=== PATIENT | female | born 1970 | race Caucasian/White ===

== ENCOUNTER 2017-12-19 14:13 | Emergency (ER) | payer OTHER, SELFPAY ==
[2017-12-19 14:19] VITALS: BP 108/54; PULSE 95; PULSE 96; RESP 18; TEMP 36.7; O2SAT 100; BMI 35.3
--- NOTE | 2017-12-19 14:23 | DI.RAD.S_ITS ---
PROCEDURE: XR CHEST 1V INDICATIONS: chest pain TECHNIQUE: One view of the chest was acquired. COMPARISON: [facility], , CHEST 1 VIEW, 11/14/2017, 11:28. FINDINGS: Surgical changes and devices: None. Lungs and pleura: No pleural effusions or pneumothorax. Lungs are clear. Mediastinum: Mediastinal contours appear normal. Heart size is normal. Bones and chest wall: No suspicious bony lesions. Overlying soft tissues appear unremarkable. IMPRESSION: Reduced inspiratory volume, no acute disease. Dictated by: Carlos Bustamante M.D. on 12/19/2017 at 15:16 Approved by: Carols Bustamante M.D. on 12/19/2017 at 15:16
[2017-12-19 14:44] LABS: Add Manual Diff / Slide Review NO; Basophils Percent Auto 0.8 % (0-2); Eosinophils Percent Auto 1.1 % (2-4); Hematocrit 38.6 % (36-46); Hemoglobin 13.7 g/dL (12.0-16.0); Lymphocytes Percent Auto 16.3 % (25-40); Mean Corpuscular HGB Conc 35.4 % (30-36); Mean Corpuscular Hemoglobin 33.2 PG (26-34); Mean Corpuscular Volume 93.9 fL (80-100); Monocytes Percent Auto 5.9 % (3-14); Neutrophils Absolute Auto 5000 /uL (3000-5900); Neutrophils Percent Auto 75.9 % (50-75); Platelet Count 243 X10^3/uL (150-400); Red Blood Cell Count 4.11 X10^6/uL (4.0-5.2); Red Cell Distribution Width 13.6 % (11.6-14.8); White Blood Cell Count 6.6 X10^3/uL (4.5-11.0)
--- NOTE | 2017-12-19 14:46 | ED.CHESTPAIN ---
HPI - Chest Pain General Chief Complaint: Chest Pain Stated Complaint: General Weakness Time Seen by Provider: 12/19/17 14:40 Source: patient and EMS Mode of arrival: EMS Limitations: no limitations History of Present Illness HPI narrative: Patient presents to the emergency department today with a chief complaint of episodes of chest pain since 10 or 11 this morning. She denies provocation, palliation or radiation. She has extensive history of chest pain for the past 6 years and has had multiple evaluations in the interim. Additionally she has a longstanding history of vasovagal syncope and at up episode this afternoon associated with a sensation of nausea and loose stools. She did not vomit she did not lose control of her bowels. When EMS arrived on her blood pressure to be in 70s and she was diaphoretic, consistent with her prior history vagal responses. By her arrival she was nearly asymptomatic. Additionally she complains of fullness in her neck and control of her tongue has been problematic for some time, she states that she has discussed a swelling of thyroid gland with her primary care doctor whom told her the thyroid may be pressing on her carotids which would have caused her symptoms today. MD complaint: chest pain Onset (ago): hour(s) Duration: intermittent Related Data Home Medications Medication Instructions Recorded Confirmed clonidine HCl [Catapres] 0.2 mg BID #0 09/19/17 12/19/17 lisinopril [Prinivil] 40 mg PO QDAY #0 09/19/17 12/19/17 Allergies Allergy/AdvReac Type Severity Reaction Status Date / Time Beta-Blockers Allergy Unknown Verified 12/19/17 14:22 (Beta-Adrenergic Bloc [BETA-BLOCKERS (BETA-ADRENERGIC BLOC] Sulfa (Sulfonamide Allergy Unknown Verified 12/19/17 14:22 Antibiotics) [SULFA (SULFONAMIDE ANTIBIOTICS)] TYRAMINES Allergy Unknown Uncoded 11/14/17 11:17 Review of Systems Review of Systems All systems reviewed & are unremarkable except as noted in HPI and below Constitutional Denies chills, Denies fever(s), Denies lethargy and Denies weakness Eyes Denies change in vision, Denies eye discharge, Denies irritation and Denies loss of vision ENT Ears, Nose, Mouth, and Throat: Denies change in voice, Reports neck pain and Denies sore throat Cardiovascular Reports chest pain, Reports syncope (Near syncope), Denies irregular heart rhythm, Denies lightheadedness, Denies palpitations, Denies dyspnea, Denies dyspnea on exertion and Denies orthopnea Respiratory Denies cough, Denies dyspnea, Denies dyspnea on exertion and Denies wheezing Gastrointestinal Gastrointestinal: Denies abdominal pain, Denies change in bowel habits, Denies diarrhea, Reports nausea and Denies vomiting Genitourinary Denies hematuria, Denies flank pain, Denies urinary incontinence and Denies urinary urgency Musculoskeletal Reports neck pain Integumentary/Breasts Denies pruritus, Denies erythema, Denies rash and Denies wounds Neurologic Denies confusion, Reports syncope (Near syncope), Denies loss of vision and Denies weakness Psychiatric Denies anxiety, Denies confusion, Denies depression, Denies homicidal ideation and Denies suicidal ideation Endocrine Denies palpitations Hematologic/Lymphatic Denies easy bruising Allergic/Immunologic Denies wheezing PFSH Social History Smoking Status: Never smoker Exam Narrative Exam Narrative: Pleasant 47-year-old female in no significant distress Initial Vital Signs Initial Vital Signs: Vital Signs Temperature 98.1 F 12/19/17 14:19 Pulse Rate 95 H 12/19/17 14:19 Respiratory Rate 18 12/19/17 14:19 Blood Pressure 108/54 L 12/19/17 14:19 Pulse Oximetry 100 12/19/17 14:19 Const General: cooperative, well developed and anxious Nutritional Appearance: well nourished Orientation: alert, awake, oriented x3 and not confused [facility] Head: normocephalic and atraumatic Ears: external ears normal and TM's normal bilaterally Nose: external nose normal and No nasal discharge Face and sinus: sinuses nontender, face symmetric, no sinus tenderness and No dry mucous membranes Mouth: oral mucosae normal and moist mucous membranes Teeth and gingiva: dentition normal Throat: tonsils normal and uvula midline Eyes General: appearance normal, both eyes and all related structures Eyelids: eyelids normal Conjunctivae: conjunctivae normal Sclera: sclerae normal Pupils: PERRL EOM: EOM intact bilaterally Neck Neck: trachea midline, anterior neck swelling (Mild, pain-free anterior neck swelling), No lymphadenopathy, No midline deformity and No JVD Lymphatic: No lymphedema Chest Chest: normal inspection of the chest Resp Effort & Inspection: normal respiratory effort, able to speak in complete sentences, no respiratory distress and no use of accessory muscles Auscultation: clear to auscultation bilaterally, no rales, no rhonchi and no wheezes Cardio Rate: regular rate Rhythm: regular rhythm Heart Sounds: no click, no gallops, no murmurs and no rubs Pulses: normal peripheral pulses GI Inspection: non-distended Palpation: soft, no hepatosplenomegaly, No guarding, No pulsatile mass and No tender Auscultation: normal bowel sounds Back/Spine/Pelvis Back: No CVA tenderness Cervical Spine: cervical ROM normal and No pain with cervical ROM Thoracic/Lumbar Spine: thoracic and lumbar spine normal to inspection Skin General: no rashes or lesions noted, No jaundice and No petechiae Neuro General: alert, oriented x3, gait normal and no focal motor deficits Speech: speech normal Extrem General: full ROM, no clubbing, cyanosis or edema, no pedal edema and no calf tenderness Psych Appearance: well kempt Mental Status: mental status grossly normal Attitude: cooperative Thought Content: normal and suicidality Judgment: judgment good Course Orders Ordered: ED Orders 12/19/17 14:23 XR chest 1V Stat EKG-12 Lead Stat 12/19/17 14:35 Complete Blood Count AUTO DIFF Stat Comprehensive Metabolic Panel Stat Lipase Stat Troponin with CK Cardiac Panel Stat 12/19/17 16:06 CT soft tissue neck w con Stat Vital Signs - 8 hr 12/19/17 14:19 12/19/17 15:07 12/19/17 16:00 Temperature 98.1 F Pulse Rate 96 H 93 H 103 H Respiratory Rate 18 15 30 H Blood Pressure 108/54 L Blood Pressure [Left Arm] 108/54 L 138/67 H 117/66 Pulse Oximetry 100 100 94 12/19/17 16:40 12/19/17 17:13 Temperature Pulse Rate 98 H 85 Respiratory Rate 18 17 Blood Pressure 130/73 H Blood Pressure [Left Arm] 130/73 H Pulse Oximetry 100 99 MDM - Chest Pain Differential Diagnosis Likely pneumothorax, stable angina, unstable angina pectoris, atypical chest pain, st elevation myocardial infarction, costochondritis and chest pain Medical Records Data Attestation: I reviewed the patient's medical records. Lab Data Attestation: I reviewed the patient's lab results. Result diagrams: 12/19/17 14:35 12/19/17 14:35 Lab Results 12/19/17 12/19/17 Range/Units 14:35 14:35 WBC 6.6 (4.5-11.0) X10^3/uL RBC 4.11 (4.0-5.2) X10^6/uL Hgb 13.7 (12.0-16.0) g/dL Hct 38.6 (36-46) % MCV 93.9 (80-100) fL MCH 33.2 (26-34) PG MCHC 35.4 (30-36) % RDW 13.6 (11.6-14.8) % Plt Count 243 (150-400) X10^3/uL Neut % (Auto) 75.9 H (50-75) % Lymph % (Auto) 16.3 L (25-40) % [place] % (Auto) 5.9 (3-14) % Eos % (Auto) 1.1 L (2-4) % Baso % (Auto) 0.8 (0-2) % Neut # (Auto) 5000 (3511-5993) /uL Sodium 138 (137-145) mmol/L Potassium 3.8 (3.4-5.1) mmol/L Chloride 99 (98-107) mmol/L Carbon Dioxide 24 (22-32) mmol/L BUN 15 (7-17) mg/dL Creatinine 0.80 (0.52-1.04) mg/dL Estimated GFR > 60.0 (>60) mL/min BUN/Creatinine Ratio 18.8 (6-22) Glucose 146 H (70-100) mg/dL Calcium 9.5 (8.4-10.2) mg/dL Total Bilirubin 0.5 (0.2-1.3) mg/dL AST 53 H (14-36) IU/L ALT 75 H (9-52) IU/L Alkaline Phosphatase 98 (38-126) U/L Total Creatine Kinase 35 (30-135) U/L Troponin I < 0.012 (0.01-0.034) ng/mL Total Protein 8.0 (6.3-8.2) g/dL Albumin 4.6 (3.5-5.0) g/dL Globulin 3.4 (1.7-4.1) g/dL Albumin/Globulin Ratio 1.4 (1.0-2.8) Lipase 88 (23-300) U/L Imaging Data CT Soft Tissue Neck: Attestation: I personally reviewed and interpreted this imaging study as follows: My impression: PROCEDURE: CT SOFT TISSUE NECK W CON INDICATIONS: fullness in neck, cannot swallow or control tongue TECHNIQUE: After the administration of intravenous contrast, 3.0 mm axial sections acquired from the sella to the aortic arch. Additional oblique axial 3.0 mm sections acquired through the pharynx. 3 mm thick coronal and sagittal reformats were generated. For radiation dose reduction, the following was used: automated exposure control. COMPARISON: None. FINDINGS: Image quality: Excellent. Lymph nodes: No enlarged lymph nodes seen throughout the neck. Vessels: Visualized vasculature appears patent. Neck spaces: The oropharynx, nasopharynx, and pharynx demonstrate no mucosal lesions. The vocal cords, false vocal cords, pyriform sinuses, epiglottis, vallecula, and tongue base all appear normal. Extramucosal spaces appear unremarkable. There is narrowing at the level of the vocal cords. However, no discrete mass is present. This is suspected to be related to swallowing. Glands: The parotid and submandibular glands appear normal. Thyroid gland is. Miscellaneous: Visualized brain and orbits appear normal. Lung apices appear clear. Superficial soft tissues appear normal. Bones: No suspicious bony lesions. Visualized sinuses and mastoids appear unremarkable. IMPRESSION: 1. Narrowing of the vocal cords without discrete mass suspected to be related to swallowing. Dictated by: Lotus Hall M.D. on 12/19/2017 at 15:30 Approved by: Lotus Hall M.D. on 12/19/2017 at 15:46 ECG Data Attestation: I personally reviewed and interpreted this ECG as follows: Prior ECG tracings: not available for review Interpretation: EKG is normal sinus rhythm and free of any signs of ischemia or ectopy. Discharge Plan Departure Patient Disposition: Home, Self-Care Clinical Impression: Near syncope, Atypical chest pain Discharge Date/Time: 12/19/17 17:17 Interventions: ED Discharge Assessment Last Done: 12/19/17 17:13 Instructions: DI for Atypical Chest Pain Prescriptions: No Action lisinopril [Prinivil] 20 MG tablet 40 mg PO QDAY Qty: 0 RF: 0 clonidine HCl [Catapres] 0.2 MG tablet 0.2 mg BID Qty: 0 RF: 0 Referrals: Jin Rawls MD [Physician] -
[2017-12-19 14:55] LABS: Alanine Aminotransferase 75 IU/L (9-52); Albumin 4.6 g/dL (3.5-5.0); Albumin Globulin Ratio 1.4 (1.0-2.8); Alkaline Phosphatase 98 U/L (38-126); Aspartate Aminotransferase 53 IU/L (14-36); BUN Creatinine Ratio 18.8 (6-22); Bilirubin Total 0.5 mg/dL (0.2-1.3); Blood Urea Nitrogen 15 mg/dL (7-17); Calcium 9.5 mg/dL (8.4-10.2); Carbon Dioxide 24 mmol/L (22-32); Chloride 99 mmol/L (98-107); Creatine Kinase 35 U/L (30-135); Estimated Glomerular Filt Rate > 60.0 mL/min (>60); Globulin 3.4 g/dL (1.7-4.1); Glucose 146 mg/dL (70-100); HEMOLYSIS < 15 (0-50); Lipase 88 U/L (23-300); Potassium 3.8 mmol/L (3.4-5.1); Sodium 138 mmol/L (137-145)
[2017-12-19 15:07] VITALS: BP 138/67; PULSE 93; RESP 15; O2SAT 100
[2017-12-19 15:11] LABS: Troponin I < 0.012 ng/mL (0.01-0.034)
[2017-12-19 16:00] VITALS: BP 117/66; PULSE 103; RESP 30; O2SAT 94
--- NOTE | 2017-12-19 16:06 | DI.CT.S_ITS ---
PROCEDURE: CT SOFT TISSUE NECK W CON INDICATIONS: fullness in neck, cannot swallow or control tongue TECHNIQUE: After the administration of intravenous contrast, 3.0 mm axial sections acquired from the sella to the aortic arch. Additional oblique axial 3.0 mm sections acquired through the pharynx. 3 mm thick coronal and sagittal reformats were generated. For radiation dose reduction, the following was used: automated exposure control. COMPARISON: None. FINDINGS: Image quality: Excellent. Lymph nodes: No enlarged lymph nodes seen throughout the neck. Vessels: Visualized vasculature appears patent. Neck spaces: The oropharynx, nasopharynx, and pharynx demonstrate no mucosal lesions. The vocal cords, false vocal cords, pyriform sinuses, epiglottis, vallecula, and tongue base all appear normal. Extramucosal spaces appear unremarkable. There is narrowing at the level of the vocal cords. However, no discrete mass is present. This is suspected to be related to swallowing. Glands: The parotid and submandibular glands appear normal. Thyroid gland is. Miscellaneous: Visualized brain and orbits appear normal. Lung apices appear clear. Superficial soft tissues appear normal. Bones: No suspicious bony lesions. Visualized sinuses and mastoids appear unremarkable. IMPRESSION: 1. Narrowing of the vocal cords without discrete mass suspected to be related to swallowing. Dictated by: Lotus Hall M.D. on 12/19/2017 at 15:30 Approved by: Lotus Hall M.D. on 12/19/2017 at 15:46
[2017-12-19 16:40] VITALS: BP 130/73; PULSE 98; RESP 18; O2SAT 100
[2017-12-19 17:13] VITALS: BP 130/73; PULSE 85; RESP 17; O2SAT 99
== END 2017-12-19 17:17 | disposition home or self-care (01) ==
PROVIDERS: Emergency Provider Emergency Medicine; PCP Obstetrics & Gynecology
DX: R07.89 Other chest pain (principal); R55 Syncope and collapse
CPT/HCPCS: 36415; 70491; 71045; 80053; 81003; 81025; 82550; 82553; 83690; 84484; 85025; 93005; 93041; 99284; 99285; Q9967